=== PATIENT | female | born 1945 | race Caucasian/White ===

== ENCOUNTER 2019-01-14 10:00 | Outpatient (RCR) | payer MEDICARE, BC, SELFPAY | END 2019-01-28 14:00 | disposition home or self-care (01) | LOC: PT.CARL 10:00 | PROVIDERS: Visit Provider Nurse Practitioner Family | DX: M53.3 Sacrococcygeal disorders, not elsewhere classified (principal) | CPT/HCPCS: 97014; 97033; 97110; 97163; G0283 ==